=== PATIENT | female | born 1930 | race Caucasian/White ===

== ENCOUNTER → 2019-03-04 | Outpatient (CLI) | payer MEDICARE ==
[~2019-03-04] MED LIST: AMLODIPINE BESYL5 MG PO; ASPIR 8181 MG PO; CALCIUM CHEWS PO; CENTRUM SILVER1 EAC1 PO; GABAPENTIN100 MG PO; LISINOPRIL20 MG PO; LOVASTATIN10 MG PO; VITAMIN C500 M1 PO; [UNRECOGNIZED DRUG - OTHER] PO
--- NOTE | 2019-03-06 09:27 | Diagnostic Imaging Report ---
PROCEDURE:X-RAY MODIFIED BARIUM SWALLOW COMPARISON:None INDICATIONS:Dysphagia DISCUSSION:Fluoroscopic examination was performed in conjunction with speech pathology, during swallowing of a variety of thin and thick liquid consistencies. There is trace laryngeal penetration but no evidence of aspiration. Fluoroscopy time: 2.0 minutes Cumulative dose: 4.64 mGy CONCLUSION:No aspiration with trace penetration. Please see the report from speech pathology for complete details. Mani Hassan D.O. Dictated by: Mani Hassan D.O. on 03/06/2019 at 9:30 Electronically approved by: Mani Hassan D.O. on 03/06/2019 at 9:30
== END ==
LOC: DX 11:45
PROVIDERS: ATTEND Family Medicine
DX: R13.13 Dysphagia, pharyngeal phase (principal)
CPT/HCPCS: 74230